=== PATIENT | female | born 1985 | race Hispanic/Latino ===

== ENCOUNTER → 2022-10-30 | Outpatient (CLI) | payer SELFPAY | END | disposition home or self-care (01) | LOC: LAB 15:26 | PROVIDERS: ATTEND Hospitalist | DX: Z11.1 Encounter for screening for respiratory tuberculosis (principal) | CPT/HCPCS: 36415; 86480 ==

== ENCOUNTER 2024-07-04 07:18 | Day surgery (SDC) | payer OTHER ==
[2024-07-03 08:56] LABS: BASOPHILS # (AUTO) 0.02 K/uL (0.00-0.20); BASOPHILS % (AUTO) 0.3 % (0.0-5.0); EOSINOPHILS # (AUTO) 0.09 K/uL (0.00-0.70); EOSINOPHILS % (AUTO) 1.2 % (0.0-8.0); HEMATOCRIT 38.3 % (36-48); IMMATURE GRANULOCYTE ABSOLUTE 0.02 K/uL (0-1); LYMPHOCYTES # (AUTO) 2.7 K/uL (1.0-4.8); LYMPHOCYTES % (AUTO) 36.2 % (21.0-51.0); MEAN CORPUSCULAR HEMOGLOBIN 30.5 pg (27.0-33.0); MEAN CORPUSCULAR HGB CONC 34.2 g/dL (32.0-36.0); MEAN CORPUSCULAR VOLUME 89.1 fL (79-99); MONOCYTES # (AUTO) 0.5 K/uL (0.1-1.0); MONOCYTES % (AUTO) 6.8 % (3.0-13.0); NEUTROPHILS # (AUTO) 4.1 K/uL (1.8-7.7); NEUTROPHILS % (AUTO) 55.2 % (40.0-77.0); PLATELET COUNT (AUTO) 371 K/uL (130-400); RED CELL DISTRIBUTION WIDTH 12.8 % (11.0-15.5); WHITE BLOOD COUNT (AUTO) 7.3 K/uL (4.8-10.8)
[2024-07-03 09:16] VITALS: BP 140/93; PULSE 80; RESP 16; TEMP 97.9
[~2024-07-04] VITALS: Ht 157.5 cm; Wt 57.0 kg
[2024-07-04] VITALS (14 sets, daily range): BP systolic 107–124; BP diastolic 57–83; PULSE 68–98; RESP 14–18; TEMP 97.2–97.3
[~2024-07-04 07:18] MED LIST: MVI PO
[2024-07-04] MEDS: LACTATED RINGERS 1000ML 1,000 ML IV ONE (08:04)
[2024-07-04] MEDS: ceFAZolin SODIUM 2 GM VIAL ONE (08:04)
[2024-07-04] MEDS ORDERED: LIDOCAINE PF 100MG/5ML (2%) SYRINGE 5ML ONE (09:16)
[2024-07-04] MEDS ORDERED: FENTanyl CITRate PF 50 MCG/1 ML 2ML VIAL ONE (09:17)
[2024-07-04] MEDS ORDERED: proPOFol 10 MG/ML 20ML VIAL IV ONE (09:17)
[2024-07-04] MEDS ORDERED: MIDAZOLAM HCL 1 MG/ML 2ML VIAL ONE (09:17)
[2024-07-04] MEDS ORDERED: rocuRONium bROMide 10MG/1ML 5ML VL ONE (09:18)
[2024-07-04] MEDS ORDERED: dexaMETHasone SOD PHOSPHATE 10MG/ML 1ML VIAL ONE (09:18)
[2024-07-04] MEDS ORDERED: ondanSETRON 4MG INJ ONE (09:18)
[2024-07-04] MEDS: ceFAZolin SODIUM 2 GM VIAL IVPB ONE (09:50)
[2024-07-04] MEDS ORDERED: BUPIvacaine/PF 0.25% 30ML VIAL IJ ONE (09:51)
[2024-07-04] MEDS ORDERED: ePHEDrine SULFate 50 MG/ML AMPULE ONE (10:03)
[2024-07-04] MEDS ORDERED: ketOROlac 30MG VIAL (30MG/ML) ONE (10:19)
[2024-07-04] MEDS ORDERED: GLYCOPYRROLATE 0.2 MG/ML 5 ML VIAL ONE (10:25)
[2024-07-04] MEDS ORDERED: NEOSTIGMINE METHYLSULFATE 1MG/ML IV ONE (10:25)
[2024-07-04] MEDS ORDERED: SUGAMMADEX SODIUM 200 MG/2 ML VIAL IV ONE (10:36)
--- NOTE | 2024-07-04 10:43 | OP ---
DATE OF PROCEDURE: 07/04/2024 PREOPERATIVE DIAGNOSIS: Multiparity, desires sterilization. POSTOPERATIVE DIAGNOSIS: Multiparity, desires sterilization. PROCEDURE: Laparoscopic bilateral tubal ligation via bilateral salpingectomy. SURGEON: Avis Cazares M.D. ANESTHESIA: General endotracheal. COMPLICATIONS: None. QUANTITATIVE BLOOD LOSS: Less than 10 mL. FINDINGS: Uterus sounded to 9 cm, cervix with descensus to greater than one half vagina. On laparoscopy, normal pelvis noted. Normal fallopian tubes, normal ovaries noted. SPECIMENS: Bilateral tubal segments including fimbria. DESCRIPTION OF PROCEDURE: The patient was taken to the operating room where general endotracheal anesthesia was induced without complication. She was prepped and draped in the usual sterile fashion in dorsal lithotomy position with the universal stirrups. A weighted speculum was placed in the vagina. The anterior lip of cervix grasped with Allis clamp. The uterus was sounded, the cervix dilated and the uterine manipulator advanced into the uterus to provide a means to manipulate the uterus. All other instruments were then removed. The patient's legs were lowered and the patient flattened. The skin in the infraumbilical fold was infiltrated with 0.25% Marcaine and a 5-mm skin incision made with scalpel. The 5 mm bladeless trocar and sleeve were advanced under direct visualization. The abdomen was insufflated for appropriate pneumoperitoneum. A second skin incision was made 2 cm above the pubic symphysis in the midline after infiltration of the skin with 0.25% Marcaine, a 5-mm skin incision made with a scalpel and the 5-mm bladeless trocar and sleeve advanced under direct visualization. The pelvis was examined with the findings as noted above. The LigaSure apparatus was used. Each fallopian tube was identified. Each was followed out to its fimbrial end. Each fallopian tube was then amputated along the greater than 3/4 of its length and completely excised using LigaSure. No bleeding was noted at the end of procedure. The abdomen was then desufflated. The instruments were removed. The skin incisions were closed with Dermabond. The patient was then taken out of lithotomy position, awakened and taken to the PACU awake and in stable condition. All sponge, lap, needle and instrument counts were correct x 2. The patient received 2 grams of Ancef beginning the procedure. She was transferred to the recovery room awake and in stable condition. TID: [id number] RECEIPT: [id number]
[2024-07-04] MEDS: ketOROlac 30MG VIAL (30MG/ML) ONE (10:50)
[2024-07-04] MEDS ORDERED: IBUP-2077 PO (11:15)
--- NOTE | 2024-07-04 11:55 | NUR ---
Full and complete discharge instructions given to Patient and Family both verbally and in writing. All questions answered. Tolerating PO fluids well. Voiced understanding to SURGICAL procedure and follow up. PIV removed with catheter tip intact. W\C to POV with Family to home.
== END 2024-07-04 11:56 | disposition home or self-care (01) ==
LOC: DAH 07:18
PROVIDERS: ATTEND Obstetrics & Gynecology
DX: Z30.2 Encounter for sterilization (principal); Z64.1 Problems related to multiparity; Z79.899 Other long term (current) drug therapy
CPT/HCPCS: 84703; 85025; 86850; 86900; 86901; 36415; 58670; 88302; A6260; J1885 ×2; A4663; A4351; A4606; J7120; J3010; J1100; J0665 ×2; J3490 ×3; J2003; J2250; J2704; J2405; J2710; J0690 ×2; C1769 ×2; A4649 ×2; A4215 ×2; A4223; A4222; A4221; A4510; A4600

== ENCOUNTER 2024-07-08 17:56 | Emergency (ER) | payer OTHER ==
[~2024-07-08] VITALS: Ht 157.5 cm; Wt 56.7 kg
[~2024-07-08 17:56] MED LIST changes: +IBUP-2077 PO
[2024-07-08] MEDS: HydroCORTISONE 1% CREAM 28G TP STA (18:59)
[2024-07-08 19:16] LABS: BASOPHILS # (AUTO) 0.03 K/uL (0.00-0.20); BASOPHILS % (AUTO) 0.3 % (0.0-5.0); EOSINOPHILS # (AUTO) 0.21 K/uL (0.00-0.70); EOSINOPHILS % (AUTO) 2.2 % (0.0-8.0); HEMATOCRIT 42.2 % (36-48); IMMATURE GRANULOCYTE ABSOLUTE 0.03 K/uL (0-1); LYMPHOCYTES # (AUTO) 3.5 K/uL (1.0-4.8); LYMPHOCYTES % (AUTO) 35.7 % (21.0-51.0); MEAN CORPUSCULAR HEMOGLOBIN 30.2 pg (27.0-33.0); MEAN CORPUSCULAR HGB CONC 32.9 g/dL (32.0-36.0); MEAN CORPUSCULAR VOLUME 91.5 fL (79-99); MONOCYTES # (AUTO) 0.7 K/uL (0.1-1.0); MONOCYTES % (AUTO) 7.3 % (3.0-13.0); NEUTROPHILS # (AUTO) 5.3 K/uL (1.8-7.7); NEUTROPHILS % (AUTO) 54.2 % (40.0-77.0); PLATELET COUNT (AUTO) 408 K/uL (130-400); RED BLOOD CELL COUNT(AUTO) 4.61 MIL/uL (4.00-5.50); RED CELL DISTRIBUTION WIDTH 12.6 % (11.0-15.5); WHITE BLOOD COUNT (AUTO) 9.8 K/uL (4.8-10.8)
[2024-07-08 19:24] LABS: CREATININE 0.7 mg/dL (0.5-1.0); POTASSIUM 3.5 mmol/L (3.5-5.1)
[2024-07-08] MEDS ORDERED: HYDR28.32 TP (20:23)
--- NOTE | 2024-07-08 20:23 | ERN ---
General Chief Complaint: Skin Rash/Abscess Stated Complaint: ABDOMINAL PAIN Time Seen by MD: 17:59 Time Seen by Midlevel: 17:59 Source: patient History of Present Illness Initial Comments 39-year-old female who presents to the emergency department due to a rash to the abdominal area. Patient reports she had a tubal ligation performed by Dr. Cazares the four days ago. Patient noticed the rash initiated three days ago, has been taking Benadryl without improvement. Denies any fevers, vomiting, rash spreading or further associated symptoms. Denies significant past medical history. Denies any known allergies. Allergies: Coded Allergies: No Known Drug Allergies (Unverified Allergy, Unknown, 07/03/24) Home Meds Active Scripts Hydrocortisone (Hydrocortisone 1% 28.35GM) 1 % Crm, 1 APPL TP BID for 7 Days, #30 GM 0 Refills apply to affected area(s) Prov:HEATHER FENTON 07/08/24 Reported Medications Ibuprofen (Ibuprofen 800 mg Tab) 800 Mg Tab, 1 TAB PO TID for pain for 10 Days, #30 TAB 0 Refills 07/04/24 [Mvi] No Conflict Check, 1 TAB PO DAILY 07/03/24 Past Medical History Past Medical History: No Pertinent History Past Surgical History: Other Surgical History Other: TUBAL LIGATION Female( History) LMP: Jun 29, 2024 ROS Dictation Constitutional: Negative for fever,chills, and weight loss Eyes: Negative for injury, pain,redness, and discharge ENT: Negative for injury,pain or swelling Cardiovascular: Negative for chest pain, palpitations, and edema Respiratory: Negative for shortness of breath, cough, and wheezing, Abdomen/GI: Negative for abdominal pain, nausea, vomiting, diarrhea, and constipation Back: Negative for injury and pain : Negative for painful urination, bleeding or discharge MS/Extremity: Negative for injury and deformity Skin: Positive for rash to the abdomen Negative for discoloration Neuro: Negative for headache, weakness, numbness, tingling, and seizure Psych: Negative for suicide ideation, homicidal ideation, and hallucinations Physical Exam Physical Exam Dictation General: awake, alert, no acute distress Head/Face: Normocephalic, atraumatic Eyes: PERRL, EOMI, normal conjunctiva ENT: oral cavity clear, oral mucosa moist Neck: Supple, normal range of motion Cardiovascular: RRR, normal S1/S2 Respiratory: CTAB, no respiratory distress, no rales or wheezes Abdomen: Soft, non-tender, non-distended, no guarding or rebound. Skin: Warm, dry, normal turgor. Raised bumps, rough, gritty, erythematous to the abdomen MS/Extremity: Pulses equal, no cyanosis, neurovascular intact, FROM Neuro: COAx4, GCS 15, strength 5/5, CN 2-12 intact, normal cerebellar exam, normal gait, Psych: Normal behavior, mood, and affect normal Results Laboratory and Microbiology Lab and Micro Result Laboratory Tests Test 07/08/24 19:07 White Blood Count 9.8 K/uL (4.8-10.8) Red Blood Count 4.61 MIL/uL (4.00-5.50) Hemoglobin 13.9 g/dL (12.0-16.0) Hematocrit 42.2 % (36-48) Mean Corpuscular Volume 91.5 fL (79-99) Mean Corpuscular Hemoglobin 30.2 pg (27.0-33.0) Mean Corpuscular Hemoglobin Concent 32.9 g/dL (32.0-36.0) Red Cell Distribution Width 12.6 % (11.0-15.5) Platelet Count 408 K/uL (130-400) H Mean Platelet Volume 8.9 fL (7.5-10.5) Immature Granulocyte % (Auto) 0.3 % (0-1) Neutrophils (%) (Auto) 54.2 % (40.0-77.0) Lymphocytes (%) (Auto) 35.7 % (21.0-51.0) Monocytes (%) (Auto) 7.3 % (3.0-13.0) Eosinophils (%) (Auto) 2.2 % (0.0-8.0) Basophils (%) (Auto) 0.3 % (0.0-5.0) Neutrophils # (Auto) 5.3 K/uL (1.8-7.7) Lymphocytes # (Auto) 3.5 K/uL (1.0-4.8) Monocytes # (Auto) 0.7 K/uL (0.1-1.0) Eosinophils # (Auto) 0.21 K/uL (0.00-0.70) Basophils # (Auto) 0.03 K/uL (0.00-0.20) Absolute Immature Granulocyte (auto 0.03 K/uL (0-1) Nucleated Red Blood Cells 0.0 % (0.0-0.19) Sodium Level 141 mmol/L (136-145) Potassium Level 3.5 mmol/L (3.5-5.1) Chloride Level 102 mmol/L (101-111) Carbon Dioxide Level 30 mmol/L (21-32) Blood Urea Nitrogen 14 mg/dL (7-18) Creatinine 0.7 mg/dL (0.5-1.0) Glomerular Filtration Rate Calc 113 mL/min (>90) Random Glucose 97 mg/dL (70-105) Total Calcium 10.5 mg/dL (8.5-10.1) H Labs Reviewed?: Yes MDM MDM: Differential diagnosis: Allergic reaction, rash, infection Rationale: 39-year-old female who presents to the emergency department due to a rash to the abdominal area. Patient reports she had a tubal ligation performed by Dr. Cazares the four days ago. Patient noticed the rash initiated three days ago, has been taking Benadryl without improvement. Denies any fevers, vomiting, rash spreading or further associated symptoms. Denies significant past medical history. Denies any known allergies. Per physical examination raised bumps, rough, gritty, erythematous rash noted to the abdomen, no sign of cellulitis. Labs obtained are nonspecific with no elevated WBCs. Vitals within normal limits. Hydrocortisone applied in the ED and on re-examination erythema / rash had improved. Patient has a follow up appointment with Dr. Cazares the tomorrow. She was educated on findings and diagnosis. Advised to follow up with PCP and Dr. Cazares the tomorrow. Return to the emergency department if any worsening symptoms. Patient verbalized understanding. Patient is stable for discharge. There are no social concerns with this patient. I independently interpreted the test that were performed, results were reviewed by me and considered findings on radiology if ordered. Medical management and examination interpretation discussions were had by me with other qualified healthcare professionals as indicated for the patient's care. ED Course Orders Procedure Category Date Status Time Cbc With Differential LAB 07/08/24 Complete 18:13 Basic Metabolic Panel LAB 07/08/24 Complete 18:13 Hydrocortisone 1% PHA 07/08/24 Complete Cream (Cortrisone 1% C 18:13 Current Medications Medications (Trade) Dose Ordered Sig/Jae Route PRN Reason Start Time Stop Time Status Last Admin Dose Admin Hydrocortisone (corTRIsone 1% CREAM) 1 appl ONCE STAT TP 07/08/24 18:13 07/08/24 18:19 DC 07/08/24 18:59 Vital Signs Date Time Temp Pulse Resp B/P (MAP) Pulse Ox O2 Delivery O2 Flow Rate FiO2 07/08/24 20:45 98.4 80 18 131/87 100 Room Air* 0 21 07/08/24 17:58 98.4 85 20 139/93 100 Room Air DX & DISP Disposition: Discharge Departure Impression: Primary Impression: Allergic reaction Condition: Stable Scripts Hydrocortisone (Hydrocortisone 1% 28.35GM) 1 % Crm 1 APPL TP BID for 7 Days, #30 GM 0 Refills apply to affected area(s) Prov: HEATHER FENTON 07/08/24 Additional Instructions: Discharge home. Rest. Follow up with primary care DrCristiana in 24 hours. Return to the ER for any acute changes or worsening symptoms. If any medications were prescribed take as directed. Okay to continue home medications unless otherwise discussed during your visit in the emergency room today. Patient was also advised to follow-up with primary care physician in 1 to 2 days for continued monitoring. Referrals: CURTIS CARABALLO (PCP) I performed the substantive portion of the visit. I have reviewed and personally made and approve the management plan that is documented in the notes by myself or the JESSICA. I acknowledge full responsibility for the patient's management plan. HEATHER FENTON Jul 08, 2024 20:23
[2024-07-08 20:45] VITALS: BP 131/87; PULSE 80; RESP 18; TEMP 98.4; O2SAT 100
== END 2024-07-08 20:46 | disposition home or self-care (01) ==
LOC: EDH 17:56
DX: T78.40XA Allergy, unspecified, initial encounter (principal); Z79.1 Long term (current) use of non-steroidal anti-inflammatories (NSAID); Z98.51 Tubal ligation status; X58.XXXA Exposure to other specified factors, initial encounter
CPT/HCPCS: 36415; 80048; 85025; 99283

== ENCOUNTER 2025-01-27 07:47 | Day surgery (SDC) | payer OTHER ==
[2025-01-27] VITALS (11 sets, daily range): BP systolic 92–115; BP diastolic 51–72; PULSE 56–79; RESP 15–17; TEMP 97.3–98.2
[~2025-01-27] VITALS: Ht 162.6 cm; Wt 56.2 kg
[~2025-01-27 07:47] MED LIST changes: -IBUP-2077 PO
[2025-01-27] MEDS: 0.9%NACL 1000ML 1,000 ML IV ONE (08:44)
== END 2025-01-27 11:10 | disposition home or self-care (01) ==
LOC: DAH 07:47 → ENDO 07:47
PROVIDERS: ATTEND Internal Medicine Gastroenterology
DX: R13.10 Dysphagia, unspecified (principal); K22.2 Esophageal obstruction; K29.70 Gastritis, unspecified, without bleeding; B96.81 Helicobacter pylori [H. pylori] as the cause of diseases classified elsewhere; R14.2 Eructation; Z98.51 Tubal ligation status; Z79.899 Other long term (current) drug therapy
CPT/HCPCS: 43239; 43248; 81025; J7030; J2704 ×2; A4215 ×2; A4223; A4222; A4221; A4663; A4606; J3490